=== PATIENT | female | born 1980 | race Hispanic/Latino ===

== ENCOUNTER 2021-04-25 15:00 | Inpatient (IN) | payer OTHER ==
[~2021-04-25] VITALS: Ht 165.1 cm; Wt 77.0 kg
--- NOTE | 2021-04-25 15:35 | NUR ---
PT TO ROOM VIA WHEELCHAIR
[2021-04-25 16:13] LABS: GFR > 60 ML/MIN (>=60 (CALC)); GFR FOR AFR.AMER. > 60 ML/MIN (>=60 (CALC))
[2021-04-25 17:26] LABS: HEMATOCRIT 40.1 % (37.0-47.0); HEMOGLOBIN 13.1 g/dl (12.0-16.0); IMMATURE GRANULOCYTES 0.9 % (0.0-5.0); MEAN CELL VOLUME 89.1 fL CALC (80.0-100.0); MEAN CORPUSCULAR HGB 29.1 pG CALC (26.0-32.0); MEAN CORPUSCULAR HGB CONC 32.7 g/dL CAL (32.0-36.0); NEUT# 5.05 thou/uL (2.00-7.15); RED BLOOD COUNT 4.5 mill/uL (4.20-5.60); RED CELL DISTRI WIDTH 12.1 % (11.5-15.5)
[2021-04-25 17:36] LABS: ALBUMIN 3.6 g/dL (3.2-5.0); ALKALINE PHOSPHATASE 238 u/l (38-126); ANION GAP 8 (6-22 (CALC)); BILIRUBIN, TOTAL 1.1 mg/dL (0.0-1.4); BUN 4 mg/dL (7-17); BUN/CREATININE RATIO 10 (12-20 (CALC)); CARBON DIOXIDE 31 mmol/l (22-30); CHLORIDE 95 mmol/l (95-108); CREATININE 0.4 mg/dL (0.5-1.0); GFR > 60 ML/MIN (>=60 (CALC)); GFR FOR AFR.AMER. > 60 ML/MIN (>=60 (CALC)); LIPASE 22 u/l (23-300); POTASSIUM 3.4 mmol/l (3.5-5.1); SGOT/AST 202 u/l (14-36); SODIUM 132 mmol/l (137-146); TOTAL PROTEIN 7.2 g/dL (6.3-8.2)
--- NOTE | 2021-04-25 18:12 | NUR ---
Reassessment of patient completed. No distress noted.
--- NOTE | 2021-04-25 19:26 | NUR ---
Reassessment of patient completed. No distress noted.
--- NOTE | 2021-04-25 20:52 | NUR ---
Transfer Information Transferred To: ICU Report Given to: ESA Transported by: NO [facility] NO [facility] Transport [facility] NO Air N/A Other Transported with: [facility] Nurse STRETCHER Transporter #[id number] Patent IV 95 O2 YES Child Support Investigator
[2021-04-26] VITALS (7 sets, daily range): BP systolic 92–110; BP diastolic 63–71
--- NOTE | 2021-04-26 01:00 | NUR ---
PATIENT ARRIVED TO ROOM 268 VIA WC WITH O2 VIA WC IN STABLE CONDITION. RESPIRATIONS EVEN AND UNLABORED. HR REGULAR. NO COMPLAINTS. O2 4L N/C IN PLACE. VAD S/L AT THIS TIME. NO COMPLAINTS. PATIENT OR[facility] TO [facility] BED IN LOW POSITION. CALL LIGHT WITHIN REACH.
[2021-04-26 05:49] LABS: HEMOGLOBIN 12.8 g/dl (12.0-16.0); IMMATURE GRANULOCYTES 0.8 % (0.0-5.0); MEAN CELL VOLUME 88.6 fL CALC (80.0-100.0); MEAN CORPUSCULAR HGB 29.1 pG CALC (26.0-32.0); MEAN CORPUSCULAR HGB CONC 32.8 g/dL CAL (32.0-36.0); NEUT# 2.91 thou/uL (2.00-7.15); RED BLOOD COUNT 4.4 mill/uL (4.20-5.60); RED CELL DISTRI WIDTH 12.2 % (11.5-15.5)
[2021-04-26 06:10] LABS: ALBUMIN 3.1 g/dL (3.2-5.0); ALKALINE PHOSPHATASE 208 u/l (38-126); ANION GAP 11 (6-22 (CALC)); BILIRUBIN, TOTAL 0.7 mg/dL (0.0-1.4); BUN 6 mg/dL (7-17); BUN/CREATININE RATIO 17 (12-20 (CALC)); CARBON DIOXIDE 27 mmol/l (22-30); CHLORIDE 101 mmol/l (95-108); CREATININE 0.4 mg/dL (0.5-1.0); GFR > 60 ML/MIN (>=60 (CALC)); GFR FOR AFR.AMER. > 60 ML/MIN (>=60 (CALC)); POTASSIUM 3.8 mmol/l (3.5-5.1); SGOT/AST 116 u/l (14-36); SODIUM 135 mmol/l (137-146); TOTAL PROTEIN 6.1 g/dL (6.3-8.2)
[2021-04-26 06:33] LABS: C-REACTIVE PROTEIN 18.2 mg/dL (0-0.9)
--- NOTE | 2021-04-26 07:00 | NUR ---
REPORT RECEIVED FROM TRISH MACKEY
--- NOTE | 2021-04-26 08:53 | NUR ---
PT RESTING IN SEMI FOWLERS POSITION,A&O X3;PT IS MOSTLY [place]AR[place] SPEAKING AND TRANSLATION PROVIDED BY TRISH KAUFMAN;PT DENIES ANY CURRENT PAIN OR DISCOMFORTS,PAIN SCALE AND REPORTING EDUCATED;RESPIRATIONS SHALLOW ON O2 @ 4L, O2 SATS 88-89% AND OXYGEN INCREASED TO 5L AT THIS TIME;CLEAR/DIMINISHED LUNG SOUNDS AND NON-PRODUCTIVE COUGH;ABDOMEN SOFT ON PALPATION AND ACTIVE IN ALL 4 QUADRANTS;STRONG PEDAL PULSES;SKIN INTACT;TELE MONITORING IN PLACE;#18G TO LAC INFUSING NS @ 100ML/HR,SITE APPEARS HEALTHY;PT REMAINS IN AIR/CONTACT PRECAUTIONS DUE TO COVID19 DX;PT DENIES ANY ADDITIONAL NEEDS AND IS ENCOURAGED TO CALL FOR ASSISTANCE IF NEEDED;FALL PRECAUTIONS IN PLACE WITH BED IN THE LOWEST POSITION AND CALL LIGHT IN REACH;WILL CONTINUE TO MONITOR
--- NOTE | 2021-04-26 11:03 | NUR ---
AT BEDSIDE DISCUSSING POC WITH PT.
--- NOTE | 2021-04-26 11:14 | NUR ---
PT RESTING IN SEMI FOWLERS POSITION. RESPIRATIONS SHALLOW ON O2 @ 5L VIA NC AND O2 SATS RESULTING IN 85%;RT CALLED TO BEDSIDE AND PLACED PT ON 8L HF NC AND O2 SATS LUCIO TO LOW 90'S;PT DENIES ANY ADDITIONAL NEEDS;ENCOURAGED TO CALL FOR ASSISTANCE IF NEEDED;CALL LIGHT IN REACH;WILL CONTINUE TO MONITOR
--- NOTE | 2021-04-26 11:55 | NUR ---
PT OOB RESTING IN RECLINER;RESPIRATIONS SHALLOW ON O2 @ 8L HF NC;PT DENIES ANY CURRENT PAIN OR DISCOMFORTS;TELE MONITORING IN PLACE;IV SITE PATENT INFUSING NS @ 20ML/HER PER ORDER;PT DENIES ANY ADDITIONAL NEEDS AND IS ENCOURAGED TO CALL FOR ASSISTANCE IF NEEDED;CALL LIGHT IN REACH;WILL CONTINUE TO MONITOR
--- NOTE | 2021-04-26 15:30 | NUR ---
PT RESTING IN SEMI FOWLERS POSITION TALKING ON THE PHONE;RESPIRATIONS SHALLOW ON O2 @ 8L HF NC;PT DENIES ANY CURRENT PAIN OR NEEDS;TELE MONITORING IN PLACE;IV SITE PATENT INFUSING NS & ABX;PT ENCOURAGED TO CALL FOR ASSISTANCE IF NEEDED;FALL PRECAUTIONS IN PLACE WITH CALL LIGHT IN REACH;WILL CONTINUE TO MONITOR
--- NOTE | 2021-04-26 21:50 | NUR ---
REPORT RECEIVED FROM Arabella BOYD RN. PATIENT CARE ASSUMED AT THIS TIME. PHYSICAL ASSESMENT COMPLETED. LUNGS CLEAR/ DIMMINSHED IN LOWER LOBES. NASAL CANNULA AT 2L.LAST TELEMETRY READING 70BPM, NORMAL HEART SOUNDS, S2 S2. #18 IN LEFT AC INFUSING NO KVO, IV PATENT AND HEALTHY. INTACT SKIN. ACTIVE BOWEL SOUNDS, LAST REPORTED BM 04/25/21. CARE PLAN REVIEWED. REINFORCED USE OF CALL LIGHT, BEDSIDE TABLE AND CALL LIGHT WITHIN REACH.
--- NOTE | 2021-04-27 00:30 | NUR ---
PATIENT UP THE RESTROOM AT THIS TIME, NO SOB UPON AMBULATING. INSTRUCTED TO CALL WHEN ASSISTANCE BACK TO BED IS NEEDED.
--- NOTE | 2021-04-27 03:59 | NUR ---
PATIENT SLEEPING, NO APPARENT DISTRESS, CALL LIGHT AND BEDSIDE TABLE WITHIN REACH.
[2021-04-27 04:08] VITALS: BP 104/66
[2021-04-27 08:35] VITALS: BP 109/50
--- NOTE | 2021-04-27 08:40 | NUR ---
ASSESSMENT DONE. PATIENT IS ALERT AND ORIENT X3. PATIENT DENIES PAIN. PATIENT STATED SHE HAS A COUGH. MEDICATED PATIENT WITH ROBITUSSIN. PATIENT IS AT HIGH FLOW 8L VIA NC AND O2 READING 94%. PATIENT STATED IT HAS BEEN A FEW DAYS WITHOUT A BM. PROVIDED PRUINE JUICE. LOWER HIGH FLOW O2 TO 6L. ASSISTED PATIENT TO THE BATHROOM TO VOID AND THEN TO RECLINER. O2 READING 91-93%. PATIENT DENIES ANY OTHER NEEDS AT THIS TIME. CALL LIGHT IN REACH.
[2021-04-27 10:53] VITALS: BP 105/74
--- NOTE | 2021-04-27 12:06 | NUR ---
PATIENT IS RESTING IN RECLINER WITH NO DISTRESS NOTED. TELE IN PLACE. HIGH FLOW 02 6L VIA NC. PATIENT DENIES NEEDS AT THIS TIME. CALL LIGHT IN REACH.
[2021-04-27 15:24] VITALS: BP 105/71
--- NOTE | 2021-04-27 16:50 | NUR ---
PATIENT IS TALKING IN HER CELL PHONE WITH NO DISTRESS NOTED. TELE IN PLACE. PATIENT DENIES NEEDS AT THIS TIME. CALL LIGHT IN REACH.
[2021-04-27 19:24] VITALS: BP 106/73
[2021-04-27 23:30] VITALS: BP 108/79
[2021-04-28 04:38] VITALS: BP 96/67
[2021-04-28 06:09] LABS: HEMATOCRIT 38.9 % (37.0-47.0); HEMOGLOBIN 12.6 g/dl (12.0-16.0); IMMATURE GRANULOCYTES 1.6 % (0.0-5.0); MEAN CELL VOLUME 89.6 fL CALC (80.0-100.0); MEAN CORPUSCULAR HGB CONC 32.4 g/dL CAL (32.0-36.0); NEUT# 4.59 thou/uL (2.00-7.15); RED BLOOD COUNT 4.34 mill/uL (4.20-5.60); RED CELL DISTRI WIDTH 12.3 % (11.5-15.5)
[2021-04-28 06:44] LABS: ALBUMIN 2.9 g/dL (3.2-5.0); ALKALINE PHOSPHATASE 161 u/l (38-126); ANION GAP 13 (6-22 (CALC)); BUN 5 mg/dL (7-17); BUN/CREATININE RATIO 13 (12-20 (CALC)); C-REACTIVE PROTEIN 5.4 mg/dL (0-0.9); CARBON DIOXIDE 22 mmol/l (22-30); CHLORIDE 105 mmol/l (95-108); CREATININE 0.3 mg/dL (0.5-1.0); GFR > 60 ML/MIN (>=60 (CALC)); GFR FOR AFR.AMER. > 60 ML/MIN (>=60 (CALC)); POTASSIUM 3.7 mmol/l (3.5-5.1); SGOT/AST 68 u/l (14-36); SODIUM 136 mmol/l (137-146); TOTAL PROTEIN 5.8 g/dL (6.3-8.2)
[2021-04-28 06:58] LABS: BILIRUBIN, TOTAL 0.4 mg/dL (0.0-1.4)
[2021-04-28 08:30] VITALS: BP 104/72
[2021-04-28 11:06] VITALS: BP 101/70
[2021-04-28 15:43] VITALS: BP 104/72
[2021-04-28 19:00] VITALS: BP 104/70
[2021-04-29] VITALS (7 sets, daily range): BP systolic 97–120; BP diastolic 54–79
[2021-04-29 05:44] LABS: ALBUMIN 2.8 g/dL (3.2-5.0); ALKALINE PHOSPHATASE 132 u/l (38-126); ANION GAP 11 (6-22 (CALC)); BILIRUBIN, TOTAL 0.4 mg/dL (0.0-1.4); BUN 5 mg/dL (7-17); BUN/CREATININE RATIO 18 (12-20 (CALC)); CARBON DIOXIDE 23 mmol/l (22-30); CHLORIDE 104 mmol/l (95-108); CREATININE 0.3 mg/dL (0.5-1.0); GFR > 60 ML/MIN (>=60 (CALC)); GFR FOR AFR.AMER. > 60 ML/MIN (>=60 (CALC)); POTASSIUM 3.6 mmol/l (3.5-5.1); SGOT/AST 53 u/l (14-36); SODIUM 135 mmol/l (137-146); TOTAL PROTEIN 5.7 g/dL (6.3-8.2)
--- NOTE | 2021-04-29 06:45 | NUR ---
REPORT RECEIVED FROM ARNOL. CARE ASSUMED.
--- NOTE | 2021-04-29 08:00 | NUR ---
ANALYTICAL LABORATORY TECHNICIAN SET PT UP FOR AM MEAL
--- NOTE | 2021-04-29 09:30 | NUR ---
PT SITTING UP ON COUCH IN ROOM. PT IS ALERT AND ORIENTED X3. PT CONVERSING ON PHONE. SHIFT ASSESSMENT COMPLETED AT THIS TIME. IV PATENT X1. CALL LIGHT IN REACH. WILL CONTINUE TO MONITOR.
--- NOTE | 2021-04-29 10:00 | NUR ---
DR SHELTON AND Karsten ALAS AT BEDSIDE TO DISCUSS PLAN OF CARE
--- NOTE | 2021-04-29 12:00 | NUR ---
PT SITTING UP IN ROOM NO DISTRESS NOTED. CALL LIGHT IN REACH. WILL COMTIMUE TO MONITOR.
--- NOTE | 2021-04-29 14:49 | NUR ---
O2 TITRATED DOWN TO 2L NASAL CANNULA
--- NOTE | 2021-04-29 16:00 | NUR ---
PT SITTING UP IN BED WATCHING TV. RESP ARE EVEN AND UNLABORED. NO DISTRESS NOTED. CALL LIGHT IN REACH. WILL CONTINUE TO MONITOR.
--- NOTE | 2021-04-29 20:00 | NUR ---
PATIENT REPORTS FEELING MUCH BETTER. RESPIRATIONS EVEN AND UNLABORED. ON TELEMETRY. VAD S/L. PATIENT SITTING ON COUCH BY WINDOW. DENIES PAIN OR DISCOMFORT. ASSESSMENT COMPLETED AND CHARTED.
--- NOTE | 2021-04-30 01:40 | NUR ---
NO CHANGES. RESPIRATIONS EVEN AND UNLABORED. BED IN LOW POSITION. CALL LIGHT WITHIN REACH.
[2021-04-30 04:00] VITALS: BP 103/71
--- NOTE | 2021-04-30 04:27 | NUR ---
RESTING QUIETLY. NO COMPLAINTS.
[2021-04-30 06:03] LABS: HEMOGLOBIN 12.9 g/dl (12.0-16.0); MEAN CELL VOLUME 89.2 fL CALC (80.0-100.0); MEAN CORPUSCULAR HGB 29.5 pG CALC (26.0-32.0); MEAN CORPUSCULAR HGB CONC 33.1 g/dL CAL (32.0-36.0); NEUT# 4.94 thou/uL (2.00-7.15); RED BLOOD COUNT 4.37 mill/uL (4.20-5.60); RED CELL DISTRI WIDTH 12.4 % (11.5-15.5)
[2021-04-30 06:27] LABS: ALBUMIN 3.2 g/dL (3.2-5.0); ALKALINE PHOSPHATASE 145 u/l (38-126); BILIRUBIN, TOTAL 0.4 mg/dL (0.0-1.4); BUN 6 mg/dL (7-17); BUN/CREATININE RATIO 19 (12-20 (CALC)); C-REACTIVE PROTEIN 3.6 mg/dL (0-0.9); CARBON DIOXIDE 24 mmol/l (22-30); CHLORIDE 102 mmol/l (95-108); CREATININE 0.3 mg/dL (0.5-1.0); GFR > 60 ML/MIN (>=60 (CALC)); GFR FOR AFR.AMER. > 60 ML/MIN (>=60 (CALC)); SGOT/AST 51 u/l (14-36); SODIUM 134 mmol/l (137-146); TOTAL PROTEIN 6.2 g/dL (6.3-8.2)
[2021-04-30 06:41] LABS: ANION GAP 12 (6-22 (CALC)); POTASSIUM 4.4 mmol/l (3.5-5.1)
--- NOTE | 2021-04-30 07:00 | NUR ---
RECIEVED REPORT FROM TRISH MENDOZA
[2021-04-30 08:31] VITALS: BP 109/82
--- NOTE | 2021-04-30 08:40 | NUR ---
PT RESTING IN SEMI FOWLERS POSITION. PT IS A/O X3 AND VENE[place]UEL[place] SPEAKING MOSTLY. DAUGHTER ON PHONE TO ASSIST WITH TRANSLATION. ASSESSMENT AND VITALS COMPLETED. RESPIRATIONS ARE EVEN AND UNLABORED ON 2L NC, 100% O2 REMOVED, PT O2 SAT 95%. PT INSTRUCTED TO REAPPLY IF NEEDED. PT VERBLIZED UNDERSTANDING.NON PRODUCTIVE COUGH NOTED. LUNG SOUNDS DIMINSHED. HEART RHYTHM NORMAL. BOWEL SOUNDS ARE ACTIVE IN ALL QUADRANTS. #18G LAC FLUSHED, SITE APPEARS HEALTHY AND PATENT. SKIN INTACT. PT DENIES OF ANY PAINS OR DISCOMFORTS. ROBITUSSIN ADMINISTERED. PT DENIES OF ANY PAINS OR DISCOMFORTS AT THIS TIME. ALL SAFETY PRECAUTIONS ARE IN PLACE WITH CALL LIGHT IN REACH. WILL CONTINUE TO MONTIOR.
--- NOTE | 2021-04-30 10:27 | NUR ---
WALK TEST COMPLETED. O2 96% ON ROOM AIR. O2 91% WHILE AMBULATING. O2 95% UPON RESTING. RESPIRATIONS REMAINS EVEN AND UNLABORED. VAISHNAVI LOMBARDI NOTIFIED.
[2021-04-30 10:30] VITALS: BP 110/75
--- NOTE | 2021-04-30 10:57 | NUR ---
DR SHELTON AND HARJIT,ANYUVAL AT BEDSIDE
--- NOTE | 2021-04-30 12:22 | NUR ---
PT SITTING UP ON SOFA ON PHONE. REPSIRATIONS ARE EVEN AND UNLABORED WITH NO DISTRESS NOTED ON ROOM AIR. 2L NC PRN. #18G LAC REMAINS IN PLACE. PT DENIES OF ANY ADDITIONAL NEEDS AT THIS TIME. ALL SAFTEY PRECAUTIONS ARE IN PLACE WITH CALL LIGHT IN REACH. WILL CONTINUE TO MONITOR.
[2021-04-30 15:35] VITALS: BP 114/77
[2021-04-30] MEDS ORDERED: PROVENTIL HFA IN (15:59)
[2021-04-30] MEDS ORDERED: DEXAMETHASON6 MG PO (15:59)
[2021-04-30] MEDS ORDERED: ZITHROMAX250 MG PO (15:59)
[2021-04-30] MEDS ORDERED: ASPIRIN REGULA325 M1 PO (15:59)
--- NOTE | 2021-04-30 16:14 | NUR ---
PT EDUCATED ON DEC INSTRUCTIONS AND NEW MEDICATIONS. DAUGHTER ON PHONE TO TRANSLATE. PT VERBLAIZED UNDERSTANDING. IV AB TO FINISH AT 1700. ALL SAFETY PRECAUTIONS REMAINS IN PLACE WITH TELE MONIOTRING IN PLACE. CALL LIGHT IN REACH. WILL CONTINUE TO MONITOR.
--- NOTE | 2021-04-30 18:59 | NUR ---
Discharge instructions given. Patient verbalizes understanding of same. Discharged in stable condition via Wheelchair to Home with staff. All belongings sent with pt. PT DC IN STABLE CONDITION VIA WHEELCHAIR WITH ALL DC INSTRUCTIOS AND BELONGINGS.
== END 2021-04-30 18:52 | disposition home or self-care (01) | DRG 177 ==
LOC: ED 15:00 → ED-I 19:08 → ED 19:26 → ICU 19:27 → MS2 21:35
PROVIDERS: Family Medicine; Nurse Practitioner; Nurse Practitioner Family; ADMIT Internal Medicine; ATTEND Internal Medicine
PROC: XW033E5 Introduction of Remdesivir Anti-infective into Peripheral Vein, Percutaneous Approach, New Technology Group 5 (ICD-10-PCS; principal; 2021-04-26)
DX: U07.1 COVID-19 (principal); J12.82 Pneumonia due to coronavirus disease 2019; J96.91 Respiratory failure, unspecified with hypoxia; E87.1 Hypo-osmolality and hyponatremia; I95.9 Hypotension, unspecified
CPT/HCPCS: J1650; Q9967

== ENCOUNTER 2021-10-11 20:04 | Emergency (ER) | payer SELFPAY ==
[~2021-10-11] VITALS: Ht 149.9 cm; Wt 61.0 kg
[~2021-10-11 20:04] MED LIST: ASPIRIN REGULA325 M1 PO; DEXAMETHASON6 MG PO; PROVENTIL HFA IN; ZITHROMAX250 MG PO
[2021-10-11 21:18] LABS: HEMATOCRIT 39.2 % (37.0-47.0); HEMOGLOBIN 13.2 g/dl (12.0-16.0); IMMATURE GRANULOCYTES 0.2 % (0.0-5.0); MEAN CELL VOLUME 89.7 fL CALC (80.0-100.0); MEAN CORPUSCULAR HGB 30.2 pG CALC (26.0-32.0); MEAN CORPUSCULAR HGB CONC 33.7 g/dL CAL (32.0-36.0); NEUT# 6.13 thou/uL (2.00-7.15); RED BLOOD COUNT 4.37 mill/uL (4.20-5.60); RED CELL DISTRI WIDTH 12.9 % (11.5-15.5)
[2021-10-11 21:33] LABS: ALBUMIN 4.3 g/dL (3.2-5.0); ANION GAP 11 (6-22 (CALC)); BILIRUBIN, TOTAL 0.3 mg/dL (0.0-1.4); BUN 8 mg/dL (7-17); BUN/CREATININE RATIO 13 (12-20 (CALC)); CARBON DIOXIDE 27 mmol/l (22-30); CHLORIDE 105 mmol/l (95-108); CREATININE 0.6 mg/dL (0.5-1.0); GFR > 60 ML/MIN (>=60 (CALC)); GFR FOR AFR.AMER. > 60 ML/MIN (>=60 (CALC)); POTASSIUM 3.2 mmol/l (3.5-5.1); SGOT/AST 26 u/l (14-36); SODIUM 140 mmol/l (137-146); TOTAL PROTEIN 7.5 g/dL (6.3-8.2)
[2021-10-11 21:34] LABS: ALKALINE PHOSPHATASE 66 u/l (38-126)
[2021-10-11 22:45] VITALS: BP 113/81
== END 2021-10-11 22:47 | disposition home or self-care (01) | DRG 833 ==
LOC: ED 20:04
PROVIDERS: Family Medicine
DX: O46.91 Antepartum hemorrhage, unspecified, first trimester (principal); Z3A.00 Weeks of gestation of pregnancy not specified

== ENCOUNTER 2021-10-16 15:26 | Emergency (ER) | payer SELFPAY ==
[~2021-10-16] VITALS: Ht 149.9 cm; Wt 65.0 kg
[2021-10-16 17:45] VITALS: BP 134/78
== END 2021-10-16 17:52 | disposition home or self-care (01) | DRG 761 ==
LOC: ED 15:26
DX: N93.8 Other specified abnormal uterine and vaginal bleeding (principal)